=== PATIENT | male | born 1940 | race Caucasian/White ===

== ENCOUNTER 2018-07-16 18:09 | Emergency (ER) | payer MEDICARE, BC ==
[~2018-07-16] VITALS: Ht 177.8 cm; Wt 86.2 kg
[~2018-07-16 18:09] MED LIST: ADULT LOW DOSE81 MG PO; AMLODIPINE BESYL5 MG PO; ASPIRIN EC81 M1; AVODART; CENTRUM SILVER1 EAC1 PO; CIPROFLOXACIN500 M1 PO; COLACE100 MG PO; ENALAPRIL MALEA20 MG PO; FISH OIL 1,0001 EAC5 PO; FLOMAX PO; LIPITOR40 MG PO; NITROGLYCERIN0.4 MG SL; TOPROL XL50 MG PO; TRAMADOL 50 MG50 MG PO
[2018-07-16] MEDS ORDERED: OMEPRAZOLE40 MG PO (18:29)
[2018-07-16] MEDS ORDERED: PROSCAR 5MG TABL5 MG PO (18:29)
[2018-07-16] MEDS ORDERED: AUGMENTIN 875-1 EACH PO (18:36)
[2018-07-16 18:48] VITALS: BP 170/91
== END 2018-07-16 18:49 | disposition home or self-care (01) ==
LOC: M.ERS 18:09
DX: S61.452A Open bite of left hand, initial encounter (principal); S30.871A Other superficial bite of abdominal wall, initial encounter; I10 Essential (primary) hypertension; Z90.49 Acquired absence of other specified parts of digestive tract; W54.0XXA Bitten by dog, initial encounter; Y92.89 Other specified places as the place of occurrence of the external cause; Y93.89 Activity, other specified; Y99.8 Other external cause status

== ENCOUNTER 2019-11-23 16:15 | Emergency (ER) | payer MEDICARE, BC ==
[~2019-11-23] VITALS: Ht 177.8 cm; Wt 88.5 kg
[~2019-11-23 16:15] MED LIST changes: +AUGMENTIN 875-1 EACH PO; +OMEPRAZOLE40 MG PO; +PROSCAR 5MG TABL5 MG PO
[2019-11-23] MEDS ORDERED: LIPITOR40 MG PO (16:54)
[2019-11-23] MEDS ORDERED: TOPROL XL50 MG (16:54)
[2019-11-23] MEDS ORDERED: ENALAPRIL MALEA20 MG PO (16:54)
[2019-11-23] MEDS ORDERED: NORVASC 2.5 MG2.5 M1 PO (16:55)
[2019-11-23] MEDS ORDERED: CENTRUM SILVER1 EAC5 PO (16:55)
[2019-11-23] MEDS ORDERED: ASA81BEC PO (16:55)
[2019-11-23] MEDS ORDERED: OMEPRAZOLE40 MG PO (16:56)
[2019-11-23] MEDS ORDERED: PROSCAR 5MG TABL5 M1 PO (16:56)
[2019-11-23] MEDS ORDERED: KEFLEX500 M1 PO (17:00)
[2019-11-23 17:10] VITALS: BP 143/81
== END 2019-11-23 17:13 | disposition home or self-care (01) ==
LOC: M.ERS 16:15
DX: S51.812A Laceration without foreign body of left forearm, initial encounter (principal); I10 Essential (primary) hypertension; Z90.49 Acquired absence of other specified parts of digestive tract; W22.8XXA Striking against or struck by other objects, initial encounter; Y93.89 Activity, other specified; Y92.89 Other specified places as the place of occurrence of the external cause; Y99.8 Other external cause status

== ENCOUNTER → 2021-01-17 | Outpatient (CLI) | payer MEDICARE, BC ==
[~2021-01-17] MED LIST changes: +ASA81BEC PO; +CENTRUM SILVER1 EAC5 PO; +KEFLEX500 M1 PO; +NORVASC 2.5 MG2.5 M1 PO; +PROSCAR 5MG TABL5 M1 PO; +TOPROL XL50 MG
== END ==
LOC: M.ULTRA 13:00
PROVIDERS: ATTEND Podiatrist
DX: Z01.818 Encounter for other preprocedural examination (principal); Z98.890 Other specified postprocedural states